=== PATIENT | female | born 1965 | race Caucasian/White ===

== ENCOUNTER → 2025-03-15 | Outpatient (CLI) | payer BC, SELFPAY ==
[2025-03-15 13:51] LABS: Sed Rate (ESR) 2 mm/hr (0-30)
[2025-03-15 14:09] LABS: C-Reactive Protein 1.2 mg/dL (0.0-0.9)
== END | disposition home or self-care (01) ==
LOC: COPL 13:14
PROVIDERS: PCP Internal Medicine; Referring Provider Ophthalmology; Visit Provider Ophthalmology
DX: M31.6 Other giant cell arteritis (principal)
CPT/HCPCS: 36415; 85652; 86140

== ENCOUNTER → 2025-05-31 | Outpatient (CLI) | payer BC, SELFPAY ==
--- NOTE | 2025-05-31 09:59 | XR_ITS ---
Examination: Thoracic spine 3 views Technique one AP lateral coned lateral upper dorsal spine 3 views Date and time: May 31, 2025 1006 hrs. Indications: Mid back pain beginning one week ago. Findings: Thoracolumbar dextroscoliosis 12 degrees No thoracic fracture. Mild diffuse thoracic disc narrowing Impression: Mild diffuse thoracic degenerative disc disease.
== END | disposition home or self-care (01) ==
PROVIDERS: PCP Pediatrics; Referring Provider Pediatrics; Visit Provider Pediatrics
DX: M51.34 Other intervertebral disc degeneration, thoracic region (principal)
CPT/HCPCS: 72072

== ENCOUNTER → 2025-09-08 | Outpatient (CLI) | payer BC, SELFPAY ==
--- NOTE | 2025-09-08 13:30 | XR_ITS ---
Examination: Foot, right, 3 views Technique: AP, oblique, lateral views foot, 3 views Date and time of exam: 2024, 1406 hours INDICATIONS: Injury to the foot after falling today. FINDINGS: Severe osteopenia Acute fractures bases second third and fourth metatarsals No dislocation IMPRESSION: Acute fractures bases second third and fourth metatarsals without significant offset
== END | disposition home or self-care (01) ==
PROVIDERS: PCP Internal Medicine; Referring Provider Internal Medicine; Visit Provider Internal Medicine
DX: S92.321A Displaced fracture of second metatarsal bone, right foot, initial encounter for closed fracture (principal); S92.331A Displaced fracture of third metatarsal bone, right foot, initial encounter for closed fracture; S92.341A Displaced fracture of fourth metatarsal bone, right foot, initial encounter for closed fracture; W19.XXXA Unspecified fall, initial encounter
CPT/HCPCS: 73630